=== PATIENT | female | born 1950 | race Caucasian/White ===

== ENCOUNTER 2017-09-24 09:58 | Emergency (ER) | payer OTHER, MEDICARE ==
[2017-09-24 10:23] VITALS: BP 118/68; PULSE 85; TEMP 98; BMI 22.6
[2017-09-24] MEDS ORDERED: DIPHTH,PERTUSS(ACELL),TET 0.5 ML DISP.SYRIN IM ONE (10:45)
[2017-09-24] MEDS ORDERED: ACETAMINOPHEN 325 MG TABLET (FP) ONE (10:47)
[2017-09-24] MEDS ORDERED: ACETAMINOPHEN 325 MG TABLET (FP) PO ONE (10:47)
--- NOTE | 2017-09-24 11:00 | PDOC ---
History of Present Illness <Frankie Wheeler - Last Filed: 09/24/17 11:34> - History of Present Illness Initial Comments: 09/24/17 11:02 "The patient is a 67 year old female (current smoker), with a significant PMH of COPD, multiple sclerosis (in remission), optic neuropathy who presents to the emergency department with s/p witnessed trip and fall just prior to arrival. The patient states she was walking to a when she misstepped and tripped over the curb falling forward and hitting her face on the ground. The patient denies any loss of consciousness and states she can recall events leading up to and after the fall. The patient denies any preceding chest pain, shortness of breath, dizziness, lightheadedness, nausea or blurry vision prior to falling. The patient states after falling a friend (Nurse) at the helped the patient and advised her to come to the ED for evaluation. The patient states she has some facial soreness from the fall and reports mild headache and right knee pain. The patient states she takes 81 mg of aspirin daily. She states she is unsure of her last tetanus shot. She denies neck or back pain. She denies any numbness, weakness or tingling. She denies any bowel or bladder incontinence. The patient denies chest pain, shortness of breath, and dizziness. Denies fever, chills, nausea, vomit, diarrhea and constipation. Social history: Current smoker. PCP: Dr. Juwan Jordan <Gualberto Israel - Last Filed: 09/24/17 12:04> - General Chief Complaint: Injury Stated Complaint: FACE INJURY Time Seen by Provider: 09/24/17 10:21 Past History <Frankie Wheeler - Last Filed: 09/24/17 11:34> - Past Medical History COPD: Yes GI Disorders: Yes (HIATAL HERNIA, NERD, GASTRITIS, COLON POLYP) Hypercholesterolemia: Yes Other medical history: MS - Immunization History Immunization Up to Date: No - Suicide/Smoking/Psychosocial Hx Smoking Status: Yes Smoking History: Current every day smoker Have you smoked in the past 12 months: Yes Number of Cigarettes Smoked Daily: 10 Information on smoking cessation initiated: No 'Breaking Loose' booklet given: 02/20/13 Hx Alcohol Use: No Drug/Substance Use Hx: No Substance Use Type: None Hx Substance Use Treatment: No <Gualberto Israel - Last Filed: 09/24/17 12:04> - Past Medical History Allergies/Adverse Reactions: Allergies Allergy/AdvReac Type Severity Reaction Status Date / Time No Known Allergies Allergy Verified 02/20/13 13:38 Home Medications: Ambulatory Orders Atorvastatin Ca [Lipitor] 10 mg PO HS #0 tablet 02/24/13 Aspirin Coated [Ecotrin -] 81 mg PO DAILY 09/27/15 Budesonide/Formeterol Fumarate [SYMBICORT 80/4.5mcg -] 1 inh PO BID 09/27/15 Cholecalciferol (Vitamin D3) [Vitamin D3] 1,000 unit PO DAILY 09/27/15 Ibuprofen [Advil -] 200 mg PO QID PRN 09/28/15 Review of Systems - Review of Systems Comments:: 09/24/17 11:02 "GENERAL/CONSTITUTIONAL: No fever or chills. No weakness. HEAD, EYES, EARS, NOSE AND THROAT: +Facial soreness. No change in vision. No ear pain or discharge. No sore throat. CARDIOVASCULAR: No chest pain or shortness of breath. RESPIRATORY: No cough, wheezing, or hemoptysis. GASTROINTESTINAL: No nausea, vomiting, diarrhea or constipation. GENITOURINARY: No dysuria, frequency, or change in urination. MUSCULOSKELETAL: No joint or muscle swelling or pain. No neck or back pain. SKIN: No rash NEUROLOGIC:+Headache. No vertigo, loss of consciousness, or change in strength/ sensation. ENDOCRINE: No increased thirst. No abnormal weight change. HEMATOLOGIC/LYMPHATIC: No anemia, easy bleeding, or history of blood clots. ALLERGIC/IMMUNOLOGIC: No hives or skin allergy. " <Gualberto Israel - Last Filed: 09/24/17 12:04> *Physical Exam - Vital Signs Last Vital Signs Temp Pulse Resp BP Pulse Ox 98 F 85 16 118/68 96 09/24/17 10:00 09/24/17 10:00 09/24/17 10:00 09/24/17 10:00 09/24/17 10:00 <Frankie Wheeler - Last Filed: 09/24/17 11:34> - Vital Signs Last Vital Signs Temp Pulse Resp BP Pulse Ox 98 F 85 16 118/68 96 09/24/17 10:00 09/24/17 10:00 09/24/17 10:00 09/24/17 10:00 09/24/17 10:00 - Physical Exam Comments: 09/24/17 11:00 "GENERAL: Awake, alert, and fully oriented, in no acute distress. HEAD: + abrasion to bridge of nose and forehead with R frontal hematoma, no lacerations EYES: PERRLA, EOMI, sclera anicteric, conjunctiva clear ENT: No septal hematoma, no blood in nares, Auricles normal inspection, hearing grossly normal, nares patent, oropharynx clear without lacerations. Moist mucosa NECK: Nontender, no stepoffs, Normal ROM, supple, no lymphadenopathy, JVD, or masses BACK: nontender, no stepoffs LUNGS: Breath sounds equal, clear to auscultation bilaterally. No wheezes, and no crackles HEART: Regular rate and rhythm, normal S1 and S2, no murmurs, rubs or gallops ABDOMEN: Soft, nontender, normoactive bowel sounds. No guarding, no rebound. No masses EXTREMITIES: +abrasion to R palm and R knee, Normal range of motion, no edema. No clubbing or cyanosis. No cords, erythema, or tenderness NEUROLOGICAL: Cranial nerves II through XII intact. 5/5 strength and sensation in all extremities, Normal speech, normal gait, normal cerebellar function SKIN: Warm, Dry, normal turgor, no rashes or lesions noted. <Gualberto Israel - Last Filed: 09/24/17 12:04> ED Treatment Course - RADIOLOGY Radiograph Interpretation: 09/24/17 11:34 EXAM#: TYPE/EXAM: RESULT: [id number] CT/FACIAL BONES CT W/O CONTRAST [id number] CT/HEAD CT WITHOUT CONTRAST INDICATION: Fall. Injury. TECHNIQUE: 1. Axial noncontrast head CT with coronal and sagittal reformations. 2. Axial noncontrast facial bone CT with coronal and sagittal reformations. COMPARISON: No prior head or facial bone CT. Correlation made to the 2008 MRI brain. FINDINGS: There is no acute intracranial hemorrhage or extra-axial collection. There is generalized, age- related cerebral volume loss with ex vacuo enlargement of the CSF spaces. There is no hydrocephalus. There is no compelling evidence of acute transcortical infarction at this time. There is no mass effect or midline shift. There is confluent nonspecific hypoattenuation in the periventricular white matter. There is hematoma and edema in the scalp soft tissues overlying the right frontal bone. The calvarium is intact. The paranasal sinuses and mastoid air cells are clear. There is age- indeterminate nondisplaced right nasal bone fracture. Otherwise, no evidence of acute fracture in the remaining facial bones. Retrobulbar fat is maintained within both orbits. Extensive streak artifact from dental hardware obscures the oral cavity. IMPRESSION: 1. No acute intracranial hemorrhage, mass effects, hydrocephalus or calvarial fracture. Hematoma and edema in the scalp soft tissues overlying the right frontal bone. 2. Nondisplaced right nasal bone fracture is age indeterminate. Please correlate clinically, with point tenderness. 3. Nonspecific hypoattenuation in the periventricular white matter may be attributed to microvascular ischemia. Other processes including demyelination are not excluded. Please correlate clinically, with medical history. Reported By: Lester Sykes DO - Medications Given in the ED: ED Medications Discontinued Medications Generic Name Dose Route Start Last Admin Trade Name Nasir PRN Reason Stop Dose Admin Acetaminophen 650 mg 09/24/17 10:47 09/24/17 10:55 Tylenol - PO 09/24/17 10:48 650 mg ONCE ONE Administration Diphtheria/Tetanus/Acell Pertussis 0.5 ml 09/24/17 10:45 09/24/17 10:55 Boostrix - IM 09/24/17 10:46 0.5 ml .ONCE ONE Administration <Frankie Wheeler - Last Filed: 09/24/17 11:34> - RADIOLOGY Radiology Studies Ordered: Category Date Time Status FACIAL BONES CT W/O CONTRAST [CT] Stat CT Scan 09/24/17 10:[address] WITHOUT CONTRAST [CT] Stat CT Scan 09/24/17 10:44 Ordered <Gualberto Israel - Last Filed: 09/24/17 12:04> Medical Decision Making - Medical Decision Making 09/24/17 10:49 67 F with facial injury after mechanical fall. Exam notable for abrasions to bridge of nose, forehead, R wrist, and R knee. Pt with no bony tenderness in wrist or knee to suggest acute fx. Will obtain CTs to r/o facial fx and ICH. Pt without any s/s syncope, is HD stable in ED. Witnessed by daughter tripping over a step. Will defer labs and EKG at this time. - CT head/facial bones - XR R wrist, R knee - Tylenol - Tdap 09/24/17 11:50 CT notable for nasal fx XR negative on my read Pt's wounds cleaned and dressed with bacitracin. Pt is well appearing, with normal vitals. Clinically stable for DC at this time. I discussed the physical exam findings, ancillary test results and final diagnoses with the patient. I answered all of the patient's questions. The patient was satisfied with the care received and felt comfortable with the discharge plan and treatment plan. The patient agrees to follow up with the primary care physician within 24-72 hours. <Gualberto Israel - Last Filed: 09/24/17 12:04> *DC/Admit/Observation/Transfer - Attestations Scribe Attestion: 09/24/17 11:15 Documentation prepared by Frankie Wheeler, acting as medical insurance clerk for Gualberto Israel MD. <Frankie Wheeler - Last Filed: 09/24/17 11:34> - Attestations Physician Attestion: 09/24/17 11:52 I, Dr. Gualberto Israel MD, attest that this document has been prepared under my direction and personally reviewed by me in its entirety. I further attest, that it accurately reflects all work, treatment, procedures and medical decision -making performed by me. <Gualberto Israel - Last Filed: 09/24/17 12:04> Diagnosis at time of Disposition: Nasal bone fracture - Discharge Dispostion Disposition: HOME - Referrals Referrals: Juwan Jordan MD [Primary Care Provider] - Danny Bernal MD [Staff Physician] - - Patient Instructions Printed Discharge Instructions: DI for Closed Head Injury Additional Instructions: Keep your wounds clean and dry at all times. You may rinse gently with soap and water to clean. Apply antibiotic ointment twice daily to prevent infection. You have a nasal bone fracture. Follow up with an ENT specialist within 1 week for further evaluation and treatment. Call the number provided to make an appointment. If you experience severe headache, vomiting, lethargy, or any other concerning symptoms, return to the ER immediately. Otherwise, follow up with your primary doctor within 1-2 weeks. - Post Discharge Activity
== END 2017-09-24 12:08 | disposition home or self-care (01) ==
LOC: JER 09:58
PROC: 3E0234Z Introduction of Serum, Toxoid and Vaccine into Muscle, Percutaneous Approach (ICD-10-PCS; principal; 2017-09-24)
DX: S02.2XXA Fracture of nasal bones, initial encounter for closed fracture (principal); S00.83XA Contusion of other part of head, initial encounter; W10.1XXA Fall (on)(from) sidewalk curb, initial encounter; Y93.01 Activity, walking, marching and hiking; Y92.480 Sidewalk as the place of occurrence of the external cause; Y99.8 Other external cause status; G35 Multiple sclerosis; J44.9 Chronic obstructive pulmonary disease, unspecified; Z87.19 Personal history of other diseases of the digestive system; Z79.82 Long term (current) use of aspirin
CPT/HCPCS: 70450-TC; 70486-TC; 73110-TC-RT-FY; 73562-TC-RT-FY; 90471; 90715; 99282-25

== ENCOUNTER 2018-11-05 13:09 | Emergency (ER) | payer OTHER, MEDICARE | END 2018-11-05 15:43 | disposition home or self-care (01) | LOC: FER 13:09 ==

== ENCOUNTER 2022-01-02 15:57 | Inpatient (IN) | payer OTHER, MEDICARE ==
[2022-01-02] MEDS ORDERED: VANCOMYCIN 1 GM in D5W (PRE-DOCKED) 1,000 MG/250 ML IVPB ONE (17:55)
[2022-01-02] MEDS ORDERED: VANCOMYCIN/WATER FOR INJ (PEG) 1,000 MG/200 ML BAG IVPB ONE (18:17)
[2022-01-02] MEDS ORDERED: FAMOTIDINE 20 MG/50 ML IVPB 20 MG/50 ML MG IVPB ONE ×3 (18:30→21:52)
[2022-01-02] MEDS ORDERED: methylPREDNISolone NA SUCC 125 MG/2 ML VIAL IVPB ONE (18:30)
[2022-01-02 18:32] LABS: BASO % 0.4 % (0-2.0); HEMATOCRIT 39.5 % (32.4-45.2); HEMOGLOBIN 13.3 GM/dL (10.7-15.3); LYMPH % 11.4 % (8-40); MCHC 33.6 g/dl (32.0-36.0); MEAN CELL VOLUME 86.3 fl (80-96); MEAN PLT VOLUME 7.8 fl (7.5-11.1); MONO % 12.5 % (3.8-10.2); NEUT % 74.7 % (42.8-82.8); PLATELET COUNT 416 10^3/uL (134-434); RBC 4.58 M/mm3 (3.60-5.2)
[2022-01-02 18:57] LABS: CALCIUM 9.6 mg/dL (8.5-10.1)
[2022-01-02 18:58] LABS: ALBUMIN 3.5 g/dl (3.4-5.0); BLOOD UREA NITROGEN 19.2 mg/dL (7-18)
[2022-01-02 19:01] LABS: CREATININE 0.6 mg/dL (0.55-1.3)
[2022-01-02 19:02] LABS: TOT PROT 7.6 g/dl (6.4-8.2)
[2022-01-02 19:03] LABS: BILIRUBIN,TOTAL 0.4 mg/dL (0.2-1)
[2022-01-02 19:24] LABS: MAGNESIUM 2.5 mg/dL (1.8-2.4)
[2022-01-02] MEDS ORDERED: ALBUTEROL SO4 HFA INHALER IH PRN (23:24)
[2022-01-03] MEDS: ATORVASTATIN CA 40 MG TABLET (FP) PO SCH ×2 (03:48→21:07)
[2022-01-03] MEDS: BUDESONIDE/FORMETEROL FUMARATE 80/4.5 mcg INHALER IH SCH ×3 (03:48→21:06)
[2022-01-03] MEDS ORDERED: LEVOTHYROXINE NA 50 MCG TABLET (FP) ONE (06:51)
[2022-01-03 07:28] LABS: HEMATOCRIT 38.3 % (32.4-45.2); HEMOGLOBIN 12.9 GM/dL (10.7-15.3); MCH 28.9 pg (25.7-33.7); MCHC 33.7 g/dl (32.0-36.0); MEAN CELL VOLUME 85.9 fl (80-96); MEAN PLT VOLUME 8.1 fl (7.5-11.1); PLATELET COUNT 434 10^3/uL (134-434); RBC 4.46 M/mm3 (3.60-5.2); RDW 13.8 % (11.6-15.6); WHITE BLOOD COUNT 13.3 K/mm3 (4.0-10.0)
[2022-01-03 07:44] LABS: CALCIUM 9.2 mg/dL (8.5-10.1)
[2022-01-03 07:45] LABS: ALBUMIN 3.2 g/dl (3.4-5.0); BLOOD UREA NITROGEN 14.5 mg/dL (7-18)
[2022-01-03 07:48] LABS: CREATININE 0.5 mg/dL (0.55-1.3)
[2022-01-03 07:49] LABS: BILIRUBIN,TOTAL 0.4 mg/dL (0.2-1)
[2022-01-03 07:50] LABS: TOT PROT 7.3 g/dl (6.4-8.2)
[2022-01-03 08:10] LABS: EPI CELLS 8 /uL (0-25.1); HYALINE CASTS 2 /uL (0-3.1); URINE APPEARANCE TURBID; URINE BACTERIA 6 /uL (0-1359); URINE BILIRUBIN NEGATIVE (NEGATIVE); URINE COLOR YELLOW; URINE GLUCOSE (UA) NEGATIVE (NEGATIVE); URINE KETONE TRACE (NEGATIVE); URINE LEUK ESTERASE 3+ (NEGATIVE); URINE NITRITE NEGATIVE (NEGATIVE); URINE PROTEIN 1+ (NEGATIVE); URINE RBC 36 /uL (0-23.9); URINE UROBILINOGEN 0.2 mg/dL (0.2-1.0); URINE WBC 3263 /uL (0-25.8)
[2022-01-03 08:56] LABS: ANISOCYTOSIS 0; HELMET CELLS 0; HOWELL-JOLLY BODIES 0; MACROCYTOSIS 0; OVALOCYTE 0; ROULEAU 0; SICKELED CELLS 0; TARGET CELLS 0; TEAR DROP CELLS 0; TOXIC GRANULATION 0
[2022-01-03] MEDS ORDERED: VANCOMYCIN 1,000 MG in DEXTROSE 5%-WATER - 250 ML IVPB SCH (09:45)
[2022-01-03] MEDS: LEVOTHYROXINE NA 50 MCG TABLET (FP) PO SCH (10:42)
[2022-01-03] MEDS: ASPIRIN COATED 81 MG TABLET.EC PO SCH (11:38)
[2022-01-03] MEDS: MULTIVITAMINS (DAILY MVI) TABLET (FP) PO SCH (11:38)
[2022-01-03 11:59] LABS: URIC ACID 4.5 mg/dL (2.6-7.2)
[2022-01-03] MEDS: CEFAZOLIN 1 GM in DEXTROSE 5%-WATER - 50 ML IVPB SCH ×2 (14:32→17:45)
[2022-01-03 15:03] VITALS: BMI 27.9
[2022-01-03] MEDS ORDERED: VANCOMYCIN/WATER FOR INJ (PEG) 1,000 MG/200 ML BAG IVPB SCH (19:00)
[2022-01-04] MEDS: CEFAZOLIN 1 GM in DEXTROSE 5%-WATER - 50 ML IVPB SCH ×3 (01:04→18:10)
[2022-01-04] MEDS: LEVOTHYROXINE NA 50 MCG TABLET (FP) PO SCH (06:08)
[2022-01-04] MEDS: MULTIVITAMINS (DAILY MVI) TABLET (FP) PO SCH (10:18)
[2022-01-04] MEDS: ASPIRIN COATED 81 MG TABLET.EC PO SCH (10:18)
[2022-01-04] MEDS: BUDESONIDE/FORMETEROL FUMARATE 80/4.5 mcg INHALER IH SCH ×2 (10:19→22:11)
[2022-01-04] MEDS: predniSONE 10 MG TABLET (UD) PO SCH (22:10)
[2022-01-04] MEDS: ATORVASTATIN CA 40 MG TABLET (FP) PO SCH (22:10)
[2022-01-04] MEDS: BACLOFEN 10 MG TABLET (FP) PO SCH (22:10)
[2022-01-05] MEDS: CEFAZOLIN 1 GM in DEXTROSE 5%-WATER - 50 ML IVPB SCH ×3 (01:14→17:42)
[2022-01-05] MEDS: LEVOTHYROXINE NA 50 MCG TABLET (FP) PO SCH (06:29)
[2022-01-05] MEDS: MULTIVITAMINS (DAILY MVI) TABLET (FP) PO SCH (09:56)
[2022-01-05] MEDS: ASPIRIN COATED 81 MG TABLET.EC PO SCH (09:56)
[2022-01-05] MEDS: predniSONE 10 MG TABLET (UD) PO SCH ×2 (09:56→23:47)
[2022-01-05] MEDS: BACLOFEN 10 MG TABLET (FP) PO SCH ×2 (09:56→23:48)
[2022-01-05] MEDS: BUDESONIDE/FORMETEROL FUMARATE 80/4.5 mcg INHALER IH SCH ×2 (09:56→23:50)
[2022-01-05] MEDS ORDERED: COLCHICINE 0.6 MG TAB PO ONE (12:00)
[2022-01-05] MEDS: ATORVASTATIN CA 40 MG TABLET (FP) PO SCH (23:48)
[2022-01-06] MEDS: CEFAZOLIN 1 GM in DEXTROSE 5%-WATER - 50 ML IVPB SCH ×3 (02:20→18:34)
[2022-01-06] MEDS: LEVOTHYROXINE NA 50 MCG TABLET (FP) PO SCH (06:42)
[2022-01-06 09:05] LABS: BASO % 0.4 % (0-2.0); EOS % 0.1 % (0-4.5); HEMATOCRIT 37.8 % (32.4-45.2); HEMOGLOBIN 12.7 GM/dL (10.7-15.3); LYMPH % 15.2 % (8-40); MCH 29.2 pg (25.7-33.7); MCHC 33.5 g/dl (32.0-36.0); MEAN CELL VOLUME 87.2 fl (80-96); MEAN PLT VOLUME 7.7 fl (7.5-11.1); MONO % 8.5 % (3.8-10.2); NEUT % 75.8 % (42.8-82.8); PLATELET COUNT 488 10^3/uL (134-434); RBC 4.33 M/mm3 (3.60-5.2); RDW 13.7 % (11.6-15.6)
[2022-01-06] MEDS: ASPIRIN COATED 81 MG TABLET.EC PO SCH (11:01)
[2022-01-06] MEDS: MULTIVITAMINS (DAILY MVI) TABLET (FP) PO SCH (11:01)
[2022-01-06] MEDS: BACLOFEN 10 MG TABLET (FP) PO SCH ×2 (11:01→21:37)
[2022-01-06] MEDS: COLCHICINE 0.6 MG CAP PO SCH (11:03)
[2022-01-06] MEDS: predniSONE 10 MG TABLET (UD) PO SCH ×2 (11:03→21:51)
[2022-01-06] MEDS: BUDESONIDE/FORMETEROL FUMARATE 80/4.5 mcg INHALER IH SCH ×2 (11:04→21:37)
[2022-01-06] MEDS: ENOXAPARIN NA (PORCINE) 40 MG/0.4 ML DISP.SYRIN SQ SCH (15:04)
[2022-01-06] MEDS: ATORVASTATIN CA 40 MG TABLET (FP) PO SCH (21:37)
[2022-01-07] MEDS: CEFAZOLIN 1 GM in DEXTROSE 5%-WATER - 50 ML IVPB SCH ×3 (02:45→18:42)
[2022-01-07] MEDS: LEVOTHYROXINE NA 50 MCG TABLET (FP) PO SCH (07:48)
[2022-01-07] MEDS: ENOXAPARIN NA (PORCINE) 40 MG/0.4 ML DISP.SYRIN SQ SCH (11:02)
[2022-01-07] MEDS: BACLOFEN 10 MG TABLET (FP) PO SCH ×2 (11:03→22:38)
[2022-01-07] MEDS: ASPIRIN COATED 81 MG TABLET.EC PO SCH (11:03)
[2022-01-07] MEDS: predniSONE 10 MG TABLET (UD) PO SCH ×2 (11:03→22:38)
[2022-01-07] MEDS: MULTIVITAMINS (DAILY MVI) TABLET (FP) PO SCH (11:07)
[2022-01-07] MEDS: BUDESONIDE/FORMETEROL FUMARATE 80/4.5 mcg INHALER IH SCH ×2 (11:07→22:38)
[2022-01-07] MEDS: COLCHICINE 0.6 MG CAP PO SCH (11:07)
[2022-01-07] MEDS: ATORVASTATIN CA 40 MG TABLET (FP) PO SCH (22:38)
[2022-01-08] MEDS: CEFAZOLIN 1 GM in DEXTROSE 5%-WATER - 50 ML IVPB SCH ×2 (03:04→09:57)
[2022-01-08] MEDS: LEVOTHYROXINE NA 50 MCG TABLET (FP) PO SCH (06:51)
[2022-01-08] MEDS: MULTIVITAMINS (DAILY MVI) TABLET (FP) PO SCH (09:56)
[2022-01-08] MEDS: ASPIRIN COATED 81 MG TABLET.EC PO SCH (09:57)
[2022-01-08] MEDS: predniSONE 10 MG TABLET (UD) PO SCH ×2 (09:57→21:39)
[2022-01-08] MEDS: BACLOFEN 10 MG TABLET (FP) PO SCH ×2 (09:57→21:39)
[2022-01-08] MEDS: ENOXAPARIN NA (PORCINE) 40 MG/0.4 ML DISP.SYRIN SQ SCH (09:57)
[2022-01-08] MEDS: COLCHICINE 0.6 MG CAP PO SCH (09:59)
[2022-01-08] MEDS: BUDESONIDE/FORMETEROL FUMARATE 80/4.5 mcg INHALER IH SCH ×2 (10:00→21:41)
[2022-01-08] MEDS: LACTOBACILLUS ACIDOPHILUS 1 TABLET PO SCH (12:07)
[2022-01-08] MEDS: CLINDAMYCIN 600MG PREMIX IVPB 600 MG/50 ML BAG IVPB SCH ×2 (12:07→17:23)
[2022-01-08] MEDS: ATORVASTATIN CA 40 MG TABLET (FP) PO SCH (21:39)
[2022-01-09] MEDS: CLINDAMYCIN 600MG PREMIX IVPB 600 MG/50 ML BAG IVPB SCH ×3 (01:40→17:15)
[2022-01-09] MEDS: LEVOTHYROXINE NA 50 MCG TABLET (FP) PO SCH (06:44)
[2022-01-09] MEDS: LACTOBACILLUS ACIDOPHILUS 1 TABLET PO SCH (09:35)
[2022-01-09] MEDS: BACLOFEN 10 MG TABLET (FP) PO SCH ×2 (09:37→22:08)
[2022-01-09] MEDS: ENOXAPARIN NA (PORCINE) 40 MG/0.4 ML DISP.SYRIN SQ SCH (09:37)
[2022-01-09] MEDS: ASPIRIN COATED 81 MG TABLET.EC PO SCH (09:37)
[2022-01-09] MEDS: predniSONE 10 MG TABLET (UD) PO SCH ×2 (09:37→22:08)
[2022-01-09] MEDS: MULTIVITAMINS (DAILY MVI) TABLET (FP) PO SCH (09:38)
[2022-01-09] MEDS: BUDESONIDE/FORMETEROL FUMARATE 80/4.5 mcg INHALER IH SCH ×2 (09:39→22:09)
[2022-01-09] MEDS: COLCHICINE 0.6 MG CAP PO SCH (10:19)
[2022-01-09 16:22] LABS: HEMATOCRIT 35.3 % (32.4-45.2); HEMOGLOBIN 11.9 GM/dL (10.7-15.3); MCH 28.8 pg (25.7-33.7); MCHC 33.8 g/dl (32.0-36.0); MEAN CELL VOLUME 85.1 fl (80-96); MEAN PLT VOLUME 7.4 fl (7.5-11.1); PLATELET COUNT 520 10^3/uL (134-434); RBC 4.14 M/mm3 (3.60-5.2); RDW 13.7 % (11.6-15.6); WHITE BLOOD COUNT 18.5 K/mm3 (4.0-10.0)
[2022-01-09 17:03] LABS: ALBUMIN 2.8 g/dl (3.4-5.0); BLOOD UREA NITROGEN 21.2 mg/dL (7-18); CALCIUM 8.9 mg/dL (8.5-10.1)
[2022-01-09 17:06] LABS: CREATININE 0.6 mg/dL (0.55-1.3)
[2022-01-09 17:08] LABS: BILIRUBIN,TOTAL 0.2 mg/dL (0.2-1); TOT PROT 6.9 g/dl (6.4-8.2)
[2022-01-09] MEDS: ATORVASTATIN CA 40 MG TABLET (FP) PO SCH (22:08)
[2022-01-10] MEDS: CLINDAMYCIN 600MG PREMIX IVPB 600 MG/50 ML BAG IVPB SCH ×2 (02:29→09:25)
[2022-01-10] MEDS: LEVOTHYROXINE NA 50 MCG TABLET (FP) PO SCH (06:21)
[2022-01-10 08:09] VITALS: BP 105/67; PULSE 85; RESP 18; TEMP 97.8
[2022-01-10] MEDS: LACTOBACILLUS ACIDOPHILUS 1 TABLET PO SCH (09:24)
[2022-01-10] MEDS: predniSONE 10 MG TABLET (UD) PO SCH (09:25)
[2022-01-10] MEDS: ENOXAPARIN NA (PORCINE) 40 MG/0.4 ML DISP.SYRIN SQ SCH (09:26)
[2022-01-10] MEDS: ASPIRIN COATED 81 MG TABLET.EC PO SCH (09:26)
[2022-01-10] MEDS: BACLOFEN 10 MG TABLET (FP) PO SCH (09:26)
[2022-01-10] MEDS: BUDESONIDE/FORMETEROL FUMARATE 80/4.5 mcg INHALER IH SCH (09:27)
[2022-01-10] MEDS: MULTIVITAMINS (DAILY MVI) TABLET (FP) PO SCH (09:27)
[2022-01-10] MEDS: COLCHICINE 0.6 MG CAP PO SCH (09:30)
== END 2022-01-10 15:24 | DRG 603 ==
LOC: JER 15:57 → JERBED 20:12 → J8W 01-03 08:24
PROVIDERS: ADMIT Internal Medicine; ATTEND Family Medicine
DX: L03.116 Cellulitis of left lower limb (principal); N39.0 Urinary tract infection, site not specified; G35 Multiple sclerosis; J44.9 Chronic obstructive pulmonary disease, unspecified; E78.5 Hyperlipidemia, unspecified; R29.898 Other symptoms and signs involving the musculoskeletal system; E03.9 Hypothyroidism, unspecified
CPT/HCPCS: 36415; 70450-TC; 70553-TC; 71045-TC-FY; 72148-TC; 73630-TC-LT; 73718-TC-LT; 80053; 81003; 83735; 84443; 84550; 85025; 85027; 86140; 87086; 93005; 93010; 93971-TC; 97116-GP; 97161-GP; 99285-25; C9803-CS; J0475; U0003; U0005

== ENCOUNTER 2023-04-23 14:41 | Inpatient (IN) | payer OTHER, MEDICARE ==
[2023-04-23 15:12] VITALS: BMI 28.8
[2023-04-23] MEDS ORDERED: morphine CARPU-JECT 4 MG/1 ML DISP.SYRIN IVPUSH ONE (16:05)
[2023-04-23] MEDS ORDERED: morphine SULFATE 4 MG/ML VIAL ONE (17:28)
[2023-04-23 17:58] LABS: BASO % 0.5 % (0-2.0); EOS % 0.2 % (0-4.5); HEMATOCRIT 34.8 % (32.4-45.2); HEMOGLOBIN 11.5 GM/dL (10.7-15.3); LYMPH % 8.8 % (8-40); MCH 26.6 pg (25.7-33.7); MCHC 33.1 g/dl (32.0-36.0); MEAN CELL VOLUME 80.5 fl (80-96); NEUT % 82.5 % (42.8-82.8); PLATELET COUNT 480 10^3/uL (134-434); RBC 4.32 M/mm3 (3.60-5.2); RDW 15.4 % (11.6-15.6); WHITE BLOOD COUNT 18.7 K/mm3 (4.0-10.0)
[2023-04-23 18:06] LABS: INR 1.17 (0.83-1.09); PROTHROMBIN TIME (PATIENT) 13.6 SEC (9.7-13.0)
[2023-04-23 18:09] LABS: ACTIVATED PTT 28.4 SECONDS (25.2-36.5)
[2023-04-23 18:21] LABS: POTASSIUM 4.3 mmol/L (3.5-5.1)
[2023-04-23 18:24] LABS: ALBUMIN 2.8 g/dl (3.4-5.0); BLOOD UREA NITROGEN 11.7 mg/dL (7-18); CALCIUM 8.8 mg/dL (8.5-10.1)
[2023-04-23 18:27] LABS: CREATININE 0.5 mg/dL (0.55-1.3)
[2023-04-23 18:29] LABS: BILIRUBIN,TOTAL 0.4 mg/dL (0.2-1); TOT PROT 6.9 g/dl (6.4-8.2)
[2023-04-23] MEDS ORDERED: ALBUTEROL SO4 HFA INHALER IH PRN (19:40)
[2023-04-23] MEDS ORDERED: ATORVASTATIN CA 40 MG TABLET (FP) ONE (21:33)
[2023-04-23] MEDS ORDERED: ALBUTEROL SO4 2.5/IPRATROPIUM 0.5 INH SOL 3 ML VIAL.NEB. NEB ONE (21:33)
[2023-04-23] MEDS ORDERED: ACETAMINOPHEN 500 MG TABLET (FP) ONE (21:35)
[2023-04-23] MEDS: ALBUTEROL SO4 2.5/IPRATROPIUM 0.5 INH SOL 3 ML VIAL.NEB. NEB SCH (21:41)
[2023-04-23] MEDS: ACETAMINOPHEN 500 MG TABLET (FP) PO SCH (21:42)
[2023-04-23] MEDS ORDERED: ATORVASTATIN CA 40 MG TABLET (FP) PO SCH (22:00)
[2023-04-24 02:36] LABS: EPI CELLS 11 /uL (0-25.1); HYALINE CASTS 0 /uL (0-3.1); PH,URINE 5.5 (5.0-8.0); URINE APPEARANCE CLOUDY; URINE BACTERIA >9,000 /uL (0-1359); URINE BILIRUBIN NEGATIVE (NEGATIVE); URINE COLOR YELLOW; URINE GLUCOSE (UA) NEGATIVE (NEGATIVE); URINE KETONE TRACE (NEGATIVE); URINE LEUK ESTERASE 3+ (NEGATIVE); URINE NITRITE POSITIVE (NEGATIVE); URINE PROTEIN 1+ (NEGATIVE); URINE RBC 33 /uL (0-23.9); URINE WBC 3847 /uL (0-25.8)
[2023-04-24] MEDS: ACETAMINOPHEN 500 MG TABLET (FP) PO SCH ×3 (06:22→22:15)
[2023-04-24] MEDS ORDERED: LEVOTHYROXINE NA 50 MCG TABLET (FP) PO SCH (07:00)
[2023-04-24] MEDS ORDERED: LEVOTHYROXINE NA 75 MCG TABLET (FP) PO SCH (07:00)
[2023-04-24] MEDS: ALBUTEROL SO4 2.5/IPRATROPIUM 0.5 INH SOL 3 ML VIAL.NEB. NEB SCH ×3 (07:45→15:15)
[2023-04-24 09:35] LABS: HEMATOCRIT 35.5 % (32.4-45.2); HEMOGLOBIN 11.2 GM/dL (10.7-15.3); MCH 25.8 pg (25.7-33.7); MCHC 31.4 g/dl (32.0-36.0); MEAN CELL VOLUME 82.3 fl (80-96); MEAN PLT VOLUME 7.5 fl (7.5-11.1); PLATELET COUNT 507 10^3/uL (134-434); RBC 4.32 M/mm3 (3.60-5.2); RDW 15.6 % (11.6-15.6); WHITE BLOOD COUNT 14.5 K/mm3 (4.0-10.0)
[2023-04-24 09:59] LABS: POTASSIUM 5.2 mmol/L (3.5-5.1)
[2023-04-24 10:15] LABS: CALCIUM 9.3 mg/dL (8.5-10.1)
[2023-04-24 10:16] LABS: BLOOD UREA NITROGEN 13.9 mg/dL (7-18)
[2023-04-24 10:20] LABS: CREATININE 0.5 mg/dL (0.55-1.3)
[2023-04-24] MEDS ORDERED: BUPIVACAINE HCL/PF 0.5% (5MG/ML) 10 ML VIAL ONE (14:46)
[2023-04-24] MEDS ORDERED: PROPOFOL 80 ML ONE (14:47)
[2023-04-24] MEDS ORDERED: FENTANYL CITRATE/PF 50 MCG/ML VIAL ONE (14:47)
[2023-04-24] MEDS ORDERED: PROMETHAZINE HCL 25 MG/1 ML VIAL IVPB PRN (15:08)
[2023-04-24] MEDS ORDERED: ONDANSETRON 4 MG/2 ML VIAL IVPUSH PRN (15:08)
[2023-04-24] MEDS ORDERED: LACTATED RINGERS SOLUTION 1,000 ML IV SCH ×2 (15:15→19:15)
[2023-04-24] MEDS ORDERED: MIDAZOLAM HCL 2 MG/2 ML SINGLE DOSE VIAL ONE ×2 (15:52→16:59)
[2023-04-24] MEDS ORDERED: ceFAZolin SODIUM 1 GM VIAL IVPB ONE (16:17)
[2023-04-24] MEDS ORDERED: ACETAMINOPHEN 1000 MG/100 ML BAG IVPB ONE ×2 (19:02→19:15)
[2023-04-24] MEDS ORDERED: KETOROLAC TROMETHAMINE 30 MG/1 ML VIAL IVPUSH ONE ×2 (19:03→19:10)
[2023-04-24] MEDS ORDERED: ACETAMINOPHEN INJECTION 100 ML IVPB ONE (19:09)
[2023-04-24] MEDS ORDERED: KETOROLAC TROMETHAMINE 30 MG/1 ML VIAL ONE (19:10)
[2023-04-24] MEDS ORDERED: ALBUTEROL SO4 HFA INHALER IH PRN (20:19)
[2023-04-24] MEDS: DOCUSATE SODIUM 100 MG CAPSULE (FP) PO SCH (22:16)
[2023-04-24] MEDS: ATORVASTATIN CA 40 MG TABLET (FP) PO SCH (22:16)
[2023-04-25] MEDS ORDERED: CEFAZOLIN 1 GM in DEXTROSE 5%-WATER - 50 ML IVPB SCH (02:00)
[2023-04-25] MEDS: CEFAZOLIN 1 GM in DEXTROSE 5%-WATER - 50 ML IVPB SCH ×3 (02:04→18:08)
[2023-04-25] MEDS: ACETAMINOPHEN 500 MG TABLET (FP) PO SCH ×3 (06:10→22:01)
[2023-04-25] MEDS: DOCUSATE SODIUM 100 MG CAPSULE (FP) PO SCH ×3 (06:11→22:02)
[2023-04-25] MEDS: LEVOTHYROXINE NA 50 MCG TABLET (FP) PO SCH (06:52)
[2023-04-25 06:54] LABS: POTASSIUM 4.5 mmol/L (3.5-5.1)
[2023-04-25 06:59] LABS: BLOOD UREA NITROGEN 19.1 mg/dL (7-18); CALCIUM 8.5 mg/dL (8.5-10.1)
[2023-04-25 07:00] LABS: ALBUMIN 2.3 g/dl (3.4-5.0)
[2023-04-25 07:01] LABS: BASO % 0.1 % (0-2.0); HEMATOCRIT 28.9 % (32.4-45.2); HEMOGLOBIN 9.4 GM/dL (10.7-15.3); LYMPH % 6.7 % (8-40); MCH 26.6 pg (25.7-33.7); MCHC 32.6 g/dl (32.0-36.0); MEAN CELL VOLUME 81.5 fl (80-96); MEAN PLT VOLUME 7.5 fl (7.5-11.1); MONO % 6.3 % (3.8-10.2); NEUT % 86.9 % (42.8-82.8); PLATELET COUNT 442 10^3/uL (134-434); RBC 3.54 M/mm3 (3.60-5.2); RDW 15.5 % (11.6-15.6); WHITE BLOOD COUNT 16.1 K/mm3 (4.0-10.0)
[2023-04-25 07:04] LABS: CREATININE 0.5 mg/dL (0.55-1.3)
[2023-04-25 07:05] LABS: BILIRUBIN,TOTAL 0.3 mg/dL (0.2-1); TOT PROT 5.8 g/dl (6.4-8.2)
[2023-04-25] MEDS ORDERED: ALBUTEROL SO4 2.5/IPRATROPIUM 0.5 INH SOL 3 ML VIAL.NEB. NEB SCH (08:00)
[2023-04-25] MEDS: ENOXAPARIN NA (PORCINE) 40 MG/0.4 ML DISP.SYRIN SQ SCH (10:07)
[2023-04-25] MEDS: CHOLECALCIFEROL (VIT D3) 1,000 UNIT (25 MCG) TABLET PO SCH (10:08)
[2023-04-25] MEDS ORDERED: ALBUTEROL SO4 0.083% IH SOL 2.5 MG/3 ML VIAL.NEB. NEB PRN (11:28)
[2023-04-25] MEDS: FLUTICASONE/UMECLIDIN/VILANTER(100-62.5-25 TRELEGY ELLIPTA) INAHLER IH SCH (12:08)
[2023-04-25] MEDS: oxyCODONE HCL 5 MG TABLET PO PRN ×2 (12:58→18:17)
[2023-04-25] MEDS: ACETAMINOPHEN 325 MG TABLET (FP) PO PRN (18:17)
[2023-04-25] MEDS: ALBUTEROL SO4 2.5/IPRATROPIUM 0.5 INH SOL 3 ML VIAL.NEB. NEB SCH (19:49)
[2023-04-25] MEDS: ATORVASTATIN CA 40 MG TABLET (FP) PO SCH (22:02)
[2023-04-26] MEDS: ACETAMINOPHEN 500 MG TABLET (FP) PO SCH ×3 (05:33→21:01)
[2023-04-26] MEDS: DOCUSATE SODIUM 100 MG CAPSULE (FP) PO SCH ×3 (05:34→21:02)
[2023-04-26] MEDS: LEVOTHYROXINE NA 50 MCG TABLET (FP) PO SCH (06:23)
[2023-04-26] MEDS ORDERED: CEFAZOLIN SODIUM 2 GM in DEXTROSE 5%-WATER 100 ML IVPB SCH (08:15)
[2023-04-26 08:23] LABS: HEMATOCRIT 25.6 % (32.4-45.2); HEMOGLOBIN 8.4 GM/dL (10.7-15.3); MCH 26.7 pg (25.7-33.7); MCHC 32.7 g/dl (32.0-36.0); MEAN CELL VOLUME 81.8 fl (80-96); MEAN PLT VOLUME 7.5 fl (7.5-11.1); PLATELET COUNT 418 10^3/uL (134-434); RBC 3.13 M/mm3 (3.60-5.2); RDW 15.5 % (11.6-15.6); WHITE BLOOD COUNT 13.3 K/mm3 (4.0-10.0)
[2023-04-26 08:28] LABS: POTASSIUM 4.2 mmol/L (3.5-5.1)
[2023-04-26 08:31] LABS: BLOOD UREA NITROGEN 13.7 mg/dL (7-18)
[2023-04-26 08:34] LABS: CREATININE 0.4 mg/dL (0.55-1.3)
[2023-04-26] MEDS: CEFTRIAXONE 1 GM in DEXTROSE 5%-WATER - 50 ML IVPB SCH (10:16)
[2023-04-26] MEDS: ENOXAPARIN NA (PORCINE) 40 MG/0.4 ML DISP.SYRIN SQ SCH (11:14)
[2023-04-26] MEDS: oxyCODONE HCL 5 MG TABLET PO PRN (11:15)
[2023-04-26] MEDS: ACETAMINOPHEN 325 MG TABLET (FP) PO PRN (11:16)
[2023-04-26] MEDS: CHOLECALCIFEROL (VIT D3) 1,000 UNIT (25 MCG) TABLET PO SCH (11:16)
[2023-04-26] MEDS: FLUTICASONE/UMECLIDIN/VILANTER(100-62.5-25 TRELEGY ELLIPTA) INAHLER IH SCH (11:17)
[2023-04-26] MEDS: ATORVASTATIN CA 40 MG TABLET (FP) PO SCH (21:02)
[2023-04-27] MEDS: oxyCODONE HCL 5 MG TABLET PO PRN ×2 (02:09→20:23)
[2023-04-27] MEDS: ACETAMINOPHEN 500 MG TABLET (FP) PO SCH ×3 (05:45→22:46)
[2023-04-27] MEDS: DOCUSATE SODIUM 100 MG CAPSULE (FP) PO SCH ×3 (05:46→22:47)
[2023-04-27] MEDS: LEVOTHYROXINE NA 50 MCG TABLET (FP) PO SCH (07:01)
[2023-04-27 08:13] LABS: RETICULOCYTES 2.14 % (0.5-1.5)
[2023-04-27] MEDS: CEFTRIAXONE 1 GM in DEXTROSE 5%-WATER - 50 ML IVPB SCH (09:09)
[2023-04-27] MEDS: CHOLECALCIFEROL (VIT D3) 1,000 UNIT (25 MCG) TABLET PO SCH (09:10)
[2023-04-27] MEDS: ENOXAPARIN NA (PORCINE) 40 MG/0.4 ML DISP.SYRIN SQ SCH (09:10)
[2023-04-27] MEDS: FLUTICASONE/UMECLIDIN/VILANTER(100-62.5-25 TRELEGY ELLIPTA) INAHLER IH SCH (09:10)
[2023-04-27 12:07] LABS: BASO % 1.2 % (0-2.0); EOS % 5.7 % (0-4.5); HEMATOCRIT 26.6 % (32.4-45.2); HEMOGLOBIN 8.5 GM/dL (10.7-15.3); LYMPH % 14.4 % (8-40); MCH 26.4 pg (25.7-33.7); MCHC 32.1 g/dl (32.0-36.0); MEAN CELL VOLUME 82.4 fl (80-96); MEAN PLT VOLUME 7.4 fl (7.5-11.1); MONO % 10.7 % (3.8-10.2); PLATELET COUNT 460 10^3/uL (134-434); RBC 3.22 M/mm3 (3.60-5.2); RDW 15.9 % (11.6-15.6); WHITE BLOOD COUNT 13.1 K/mm3 (4.0-10.0)
[2023-04-27] MEDS ORDERED: IRON SUCROSE INJECTION 200 MG in SODIUM CHLORIDE 90 ML IVPB ONE (13:00)
[2023-04-27] MEDS: ATORVASTATIN CA 40 MG TABLET (FP) PO SCH (22:47)
[2023-04-28] MEDS: LEVOTHYROXINE NA 50 MCG TABLET (FP) PO SCH (06:16)
[2023-04-28] MEDS: ACETAMINOPHEN 500 MG TABLET (FP) PO SCH ×3 (06:17→22:39)
[2023-04-28] MEDS: DOCUSATE SODIUM 100 MG CAPSULE (FP) PO SCH ×3 (06:17→22:41)
[2023-04-28 06:41] LABS: BASO % 0.8 % (0-2.0); EOS % 5.4 % (0-4.5); HEMATOCRIT 25.9 % (32.4-45.2); HEMOGLOBIN 8.5 GM/dL (10.7-15.3); LYMPH % 16.1 % (8-40); MCH 26.6 pg (25.7-33.7); MCHC 32.7 g/dl (32.0-36.0); MEAN CELL VOLUME 81.3 fl (80-96); MEAN PLT VOLUME 6.7 fl (7.5-11.1); MONO % 11.1 % (3.8-10.2); NEUT % 66.6 % (42.8-82.8); PLATELET COUNT 473 10^3/uL (134-434); RBC 3.18 M/mm3 (3.60-5.2); RDW 15.3 % (11.6-15.6); WHITE BLOOD COUNT 12.3 K/mm3 (4.0-10.0)
[2023-04-28] MEDS ORDERED: IRON SUCROSE INJECTION 200 MG in SODIUM CHLORIDE 90 ML IVPB ONE (07:45)
[2023-04-28] MEDS: CEFTRIAXONE 1 GM in DEXTROSE 5%-WATER - 50 ML IVPB SCH (09:06)
[2023-04-28] MEDS: CHOLECALCIFEROL (VIT D3) 1,000 UNIT (25 MCG) TABLET PO SCH (09:06)
[2023-04-28] MEDS: ENOXAPARIN NA (PORCINE) 40 MG/0.4 ML DISP.SYRIN SQ SCH (09:07)
[2023-04-28] MEDS: POLYETHYLENE GLYCOL (HEALTHYLAX) 3350 17 GM PACKET PO SCH ×2 (10:04→22:39)
[2023-04-28] MEDS: FLUTICASONE/UMECLIDIN/VILANTER(100-62.5-25 TRELEGY ELLIPTA) INAHLER IH SCH (10:12)
[2023-04-28] MEDS: ATORVASTATIN CA 40 MG TABLET (FP) PO SCH (22:39)
[2023-04-29] MEDS: ACETAMINOPHEN 500 MG TABLET (FP) PO SCH ×3 (06:18→21:47)
[2023-04-29] MEDS: DOCUSATE SODIUM 100 MG CAPSULE (FP) PO SCH ×3 (06:18→21:47)
[2023-04-29] MEDS: LEVOTHYROXINE NA 50 MCG TABLET (FP) PO SCH (06:18)
[2023-04-29] MEDS: CHOLECALCIFEROL (VIT D3) 5000 UNITS (125 MCG) CAP PO SCH (09:27)
[2023-04-29] MEDS: CEFTRIAXONE 1 GM in DEXTROSE 5%-WATER - 50 ML IVPB SCH (09:27)
[2023-04-29] MEDS: POLYETHYLENE GLYCOL (HEALTHYLAX) 3350 17 GM PACKET PO SCH ×2 (09:27→21:48)
[2023-04-29] MEDS: ENOXAPARIN NA (PORCINE) 40 MG/0.4 ML DISP.SYRIN SQ SCH (09:27)
[2023-04-29] MEDS: FLUTICASONE/UMECLIDIN/VILANTER(100-62.5-25 TRELEGY ELLIPTA) INAHLER IH SCH (09:28)
[2023-04-29] MEDS: ATORVASTATIN CA 40 MG TABLET (FP) PO SCH (21:47)
[2023-04-30] MEDS: ACETAMINOPHEN 500 MG TABLET (FP) PO SCH ×3 (05:41→21:40)
[2023-04-30] MEDS: DOCUSATE SODIUM 100 MG CAPSULE (FP) PO SCH ×3 (05:42→21:39)
[2023-04-30] MEDS: LEVOTHYROXINE NA 50 MCG TABLET (FP) PO SCH (06:15)
[2023-04-30] MEDS ORDERED: IRON SUCROSE INJECTION 200 MG in SODIUM CHLORIDE 90 ML IVPB ONE (09:00)
[2023-04-30] MEDS: CEFTRIAXONE 1 GM in DEXTROSE 5%-WATER - 50 ML IVPB SCH (10:11)
[2023-04-30] MEDS: FLUTICASONE/UMECLIDIN/VILANTER(100-62.5-25 TRELEGY ELLIPTA) INAHLER IH SCH (10:13)
[2023-04-30] MEDS: ENOXAPARIN NA (PORCINE) 40 MG/0.4 ML DISP.SYRIN SQ SCH (10:13)
[2023-04-30] MEDS: POLYETHYLENE GLYCOL (HEALTHYLAX) 3350 17 GM PACKET PO SCH ×3 (10:13→23:13)
[2023-04-30] MEDS: CHOLECALCIFEROL (VIT D3) 5000 UNITS (125 MCG) CAP PO SCH (10:13)
[2023-04-30] MEDS: ATORVASTATIN CA 40 MG TABLET (FP) PO SCH (21:39)
[2023-05-01] MEDS: ACETAMINOPHEN 500 MG TABLET (FP) PO SCH ×3 (05:49→21:38)
[2023-05-01] MEDS: DOCUSATE SODIUM 100 MG CAPSULE (FP) PO SCH ×3 (05:50→21:38)
[2023-05-01] MEDS: LEVOTHYROXINE NA 50 MCG TABLET (FP) PO SCH (06:05)
[2023-05-01 07:47] LABS: HEMATOCRIT 26.5 % (32.4-45.2); HEMOGLOBIN 8.8 GM/dL (10.7-15.3); MCH 27.1 pg (25.7-33.7); MCHC 33.2 g/dl (32.0-36.0); MEAN CELL VOLUME 81.6 fl (80-96); MEAN PLT VOLUME 6.7 fl (7.5-11.1); PLATELET COUNT 593 10^3/uL (134-434); RBC 3.24 M/mm3 (3.60-5.2); RDW 16.1 % (11.6-15.6); WHITE BLOOD COUNT 15.3 K/mm3 (4.0-10.0)
[2023-05-01 08:10] LABS: POTASSIUM 4.2 mmol/L (3.5-5.1)
[2023-05-01 08:22] LABS: BLOOD UREA NITROGEN 10.8 mg/dL (7-18); CALCIUM 8.4 mg/dL (8.5-10.1)
[2023-05-01 08:23] LABS: ALBUMIN 2.2 g/dl (3.4-5.0)
[2023-05-01 08:25] LABS: CREATININE 0.3 mg/dL (0.55-1.3)
[2023-05-01 08:26] LABS: BILIRUBIN,TOTAL 0.7 mg/dL (0.2-1); TOT PROT 5.7 g/dl (6.4-8.2)
[2023-05-01 09:27] LABS: ANISOCYTOSIS 2+; MACROCYTOSIS 0; OVALOCYTE 2+; TEAR DROP CELLS 2+
[2023-05-01] MEDS ORDERED: IRON SUCROSE INJECTION 200 MG in SODIUM CHLORIDE 90 ML IVPB ONE (11:00)
[2023-05-01] MEDS: ENOXAPARIN NA (PORCINE) 40 MG/0.4 ML DISP.SYRIN SQ SCH (12:04)
[2023-05-01] MEDS: FLUTICASONE/UMECLIDIN/VILANTER(100-62.5-25 TRELEGY ELLIPTA) INAHLER IH SCH (12:04)
[2023-05-01] MEDS: CEFTRIAXONE 1 GM in DEXTROSE 5%-WATER - 50 ML IVPB SCH (12:04)
[2023-05-01] MEDS: POLYETHYLENE GLYCOL (HEALTHYLAX) 3350 17 GM PACKET PO SCH ×2 (12:04→21:38)
[2023-05-01] MEDS: CHOLECALCIFEROL (VIT D3) 5000 UNITS (125 MCG) CAP PO SCH (12:05)
[2023-05-01] MEDS ORDERED: ALBUTEROL SO4 HFA INHALER IH PRN (19:38)
[2023-05-01] MEDS ORDERED: ACETAMINOPHEN 325 MG TABLET (FP) PO PRN (19:38)
[2023-05-01] MEDS: ATORVASTATIN CA 20 MG TABLET (FP) PO SCH (21:38)
[2023-05-02] MEDS: ACETAMINOPHEN 500 MG TABLET (FP) PO SCH ×3 (06:24→21:48)
[2023-05-02] MEDS: DOCUSATE SODIUM 100 MG CAPSULE (FP) PO SCH ×3 (06:24→21:49)
[2023-05-02] MEDS: LEVOTHYROXINE NA 50 MCG TABLET (FP) PO SCH (06:24)
[2023-05-02] MEDS: POLYETHYLENE GLYCOL (HEALTHYLAX) 3350 17 GM PACKET PO SCH ×2 (10:56→21:50)
[2023-05-02] MEDS: ENOXAPARIN NA (PORCINE) 40 MG/0.4 ML DISP.SYRIN SQ SCH (10:56)
[2023-05-02] MEDS: CHOLECALCIFEROL (VIT D3) 5000 UNITS (125 MCG) CAP PO SCH (10:56)
[2023-05-02] MEDS: CEFTRIAXONE 1 GM in DEXTROSE 5%-WATER - 50 ML IVPB SCH (11:00)
[2023-05-02] MEDS: FLUTICASONE/UMECLIDIN/VILANTER(100-62.5-25 TRELEGY ELLIPTA) INAHLER IH SCH (11:00)
[2023-05-02] MEDS ORDERED: FENTANYL CITRATE/PF 50 MCG/ML VIAL ONE (12:10)
[2023-05-02] MEDS ORDERED: SODIUM CHLORIDE 500 ML IV ONE (12:45)
[2023-05-02] MEDS ORDERED: FENTANYL CITRATE/PF 50 MCG/ML VIAL IVPUSH ONE (12:55)
[2023-05-02] MEDS: ATORVASTATIN CA 20 MG TABLET (FP) PO SCH (21:49)
[2023-05-03] MEDS: DOCUSATE SODIUM 100 MG CAPSULE (FP) PO SCH ×3 (06:06→21:24)
[2023-05-03] MEDS: ACETAMINOPHEN 500 MG TABLET (FP) PO SCH ×3 (06:06→21:23)
[2023-05-03] MEDS: LEVOTHYROXINE NA 50 MCG TABLET (FP) PO SCH (06:32)
[2023-05-03] MEDS: ALBUTEROL SO4 0.083% IH SOL 2.5 MG/3 ML VIAL.NEB. NEB PRN ×2 (10:25→20:26)
[2023-05-03] MEDS: CHOLECALCIFEROL (VIT D3) 5000 UNITS (125 MCG) CAP PO SCH (10:31)
[2023-05-03] MEDS: ENOXAPARIN NA (PORCINE) 40 MG/0.4 ML DISP.SYRIN SQ SCH (10:31)
[2023-05-03] MEDS: CEFTRIAXONE 1 GM in DEXTROSE 5%-WATER - 50 ML IVPB SCH (10:32)
[2023-05-03] MEDS: POLYETHYLENE GLYCOL (HEALTHYLAX) 3350 17 GM PACKET PO SCH ×2 (10:33→21:24)
[2023-05-03] MEDS: FLUTICASONE/UMECLIDIN/VILANTER(100-62.5-25 TRELEGY ELLIPTA) INAHLER IH SCH (10:33)
[2023-05-03] MEDS: ATORVASTATIN CA 20 MG TABLET (FP) PO SCH (21:24)
[2023-05-04] MEDS: ACETAMINOPHEN 500 MG TABLET (FP) PO SCH ×3 (06:17→21:48)
[2023-05-04] MEDS: LEVOTHYROXINE NA 50 MCG TABLET (FP) PO SCH (06:17)
[2023-05-04] MEDS: DOCUSATE SODIUM 100 MG CAPSULE (FP) PO SCH ×3 (06:18→21:48)
[2023-05-04] MEDS: POLYETHYLENE GLYCOL (HEALTHYLAX) 3350 17 GM PACKET PO SCH ×2 (09:21→21:51)
[2023-05-04] MEDS: CHOLECALCIFEROL (VIT D3) 5000 UNITS (125 MCG) CAP PO SCH (09:21)
[2023-05-04] MEDS: ENOXAPARIN NA (PORCINE) 40 MG/0.4 ML DISP.SYRIN SQ SCH (09:21)
[2023-05-04] MEDS: FLUTICASONE/UMECLIDIN/VILANTER(100-62.5-25 TRELEGY ELLIPTA) INAHLER IH SCH (09:24)
[2023-05-04] MEDS: ALBUTEROL SO4 0.083% IH SOL 2.5 MG/3 ML VIAL.NEB. NEB PRN (21:07)
[2023-05-04] MEDS: ATORVASTATIN CA 20 MG TABLET (FP) PO SCH (21:49)
[2023-05-05] MEDS: ACETAMINOPHEN 500 MG TABLET (FP) PO SCH ×3 (06:18→22:24)
[2023-05-05] MEDS: LEVOTHYROXINE NA 50 MCG TABLET (FP) PO SCH (06:18)
[2023-05-05] MEDS: DOCUSATE SODIUM 100 MG CAPSULE (FP) PO SCH ×3 (06:18→22:25)
[2023-05-05 08:55] LABS: HEMATOCRIT 29.5 % (32.4-45.2); HEMOGLOBIN 9.8 GM/dL (10.7-15.3); MCH 27.9 pg (25.7-33.7); MCHC 33.2 g/dl (32.0-36.0); MEAN CELL VOLUME 83.9 fl (80-96); MEAN PLT VOLUME 6.6 fl (7.5-11.1); PLATELET COUNT 639 10^3/uL (134-434); RBC 3.52 M/mm3 (3.60-5.2); RDW 17.4 % (11.6-15.6)
[2023-05-05 09:12] LABS: POTASSIUM 4.1 mmol/L (3.5-5.1)
[2023-05-05] MEDS: CHOLECALCIFEROL (VIT D3) 5000 UNITS (125 MCG) CAP PO SCH (09:15)
[2023-05-05] MEDS: POLYETHYLENE GLYCOL (HEALTHYLAX) 3350 17 GM PACKET PO SCH ×2 (09:15→22:25)
[2023-05-05] MEDS: ENOXAPARIN NA (PORCINE) 40 MG/0.4 ML DISP.SYRIN SQ SCH (09:15)
[2023-05-05 09:17] LABS: ALBUMIN 2.5 g/dl (3.4-5.0); BLOOD UREA NITROGEN 11.3 mg/dL (7-18)
[2023-05-05] MEDS: FLUTICASONE/UMECLIDIN/VILANTER(100-62.5-25 TRELEGY ELLIPTA) INAHLER IH SCH (09:18)
[2023-05-05 09:20] LABS: CREATININE 0.4 mg/dL (0.55-1.3)
[2023-05-05 09:22] LABS: BILIRUBIN,TOTAL 0.8 mg/dL (0.2-1); TOT PROT 6.3 g/dl (6.4-8.2)
[2023-05-05 09:50] LABS: ANISOCYTOSIS 3+; MACROCYTOSIS 0
[2023-05-05] MEDS ORDERED: DIPHENHYDRAMINE HCL 25 MG/10 ML CUP PO PRN (12:39)
[2023-05-05] MEDS: ALBUTEROL SO4 0.083% IH SOL 2.5 MG/3 ML VIAL.NEB. NEB PRN (21:10)
[2023-05-05] MEDS: ATORVASTATIN CA 20 MG TABLET (FP) PO SCH (22:24)
[2023-05-06] MEDS: ACETAMINOPHEN 500 MG TABLET (FP) PO SCH (06:48)
[2023-05-06] MEDS: LEVOTHYROXINE NA 50 MCG TABLET (FP) PO SCH (06:49)
[2023-05-06] MEDS: DOCUSATE SODIUM 100 MG CAPSULE (FP) PO SCH (06:49)
[2023-05-06] MEDS: ALBUTEROL SO4 0.083% IH SOL 2.5 MG/3 ML VIAL.NEB. NEB PRN (07:40)
[2023-05-06 08:57] VITALS: BP 105/56; PULSE 89; RESP 18; TEMP 97.8
[2023-05-06] MEDS: CHOLECALCIFEROL (VIT D3) 5000 UNITS (125 MCG) CAP PO SCH (09:44)
[2023-05-06] MEDS: ENOXAPARIN NA (PORCINE) 40 MG/0.4 ML DISP.SYRIN SQ SCH (09:44)
[2023-05-06] MEDS: POLYETHYLENE GLYCOL (HEALTHYLAX) 3350 17 GM PACKET PO SCH (09:44)
[2023-05-06] MEDS: FLUTICASONE/UMECLIDIN/VILANTER(100-62.5-25 TRELEGY ELLIPTA) INAHLER IH SCH (09:48)
== END 2023-05-06 11:28 | DRG 480 ==
LOC: JER 14:41 → JERBED 17:10 → J4S 04-24 03:28 → J6S 05-01 19:19
PROVIDERS: ADMIT Internal Medicine; ATTEND Internal Medicine
PROC: 0QS906Z Reposition Left Femoral Shaft with Intramedullary Internal Fixation Device, Open Approach (ICD-10-PCS; principal; 2023-04-24 15:30)
PROC: 0BBJ3ZX Excision of Left Lower Lung Lobe, Percutaneous Approach, Diagnostic (ICD-10-PCS; 2023-05-02)
DX: S72.392A Other fracture of shaft of left femur, initial encounter for closed fracture (principal); J18.9 Pneumonia, unspecified organism; N39.0 Urinary tract infection, site not specified; J98.11 Atelectasis; J95.89 Other postprocedural complications and disorders of respiratory system, not elsewhere classified; C34.92 Malignant neoplasm of unspecified part of left bronchus or lung; I10 Essential (primary) hypertension; S82.852A Displaced trimalleolar fracture of left lower leg, initial encounter for closed fracture; J44.9 Chronic obstructive pulmonary disease, unspecified; E78.5 Hyperlipidemia, unspecified; R91.8 Other nonspecific abnormal finding of lung field; E03.9 Hypothyroidism, unspecified; D72.829 Elevated white blood cell count, unspecified; G35 Multiple sclerosis; K21.9 Gastro-esophageal reflux disease without esophagitis; D50.9 Iron deficiency anemia, unspecified; R94.5 Abnormal results of liver function studies; B96.20 Unspecified Escherichia coli [E. coli] as the cause of diseases classified elsewhere; W17.89XA Other fall from one level to another, initial encounter; Y92.092 Bedroom in other non-institutional residence as the place of occurrence of the external cause; Y99.9 Unspecified external cause status; Z99.81 Dependence on supplemental oxygen
CPT/HCPCS: 32408; 36415; 71045-TC-FY; 71046-TC-FY; 71250-TC; 73502-TC-LT-FY; 73552-TC-LT-FY; 73700-TC-RT; 76000-TC-FY; 77012-TC; 80048; 80053; 81003; 82272; 82306; 82728; 82962; 83540; 83550; 84466; 85025; 85027; 85045; 85610; 85730; 86850; 86900; 86901; 87040; 87086; 87186; 87635; 87899; 88305-TC; 88341-TC; 93005; 93010; 94010; 94640; 94760; 97116-GP; 97162-GP; 99285-25; C1713; J1756

== ENCOUNTER 2023-06-12 19:31 | Emergency (ER) | payer OTHER, MEDICARE ==
[2023-06-12] MEDS ORDERED: SODIUM CHLORIDE IV ONE (19:59)
[2023-06-12 20:04] VITALS: BMI 28.5
[2023-06-12] MEDS ORDERED: SODIUM CHLORIDE 0.9% 500 ML INFUS.BAG IV ONE (20:23)
[2023-06-12 20:43] VITALS: RESP 20
[2023-06-12] MEDS ORDERED: methylPREDNISolone NA SUCC 125 MG/2 ML VIAL IVPUSH ONE (20:53)
[2023-06-12] MEDS ORDERED: ALBUTEROL SO4 2.5/IPRATROPIUM 0.5 INH SOL 3 ML VIAL.NEB. NEB ONE (20:59)
[2023-06-12] MEDS ORDERED: methylPREDNISolone NA SUCC 125 MG/2 ML VIAL ONE (21:00)
[2023-06-12 21:08] LABS: BASO % 0.4 % (0-2.0); EOS % 0.2 % (0-4.5); HEMATOCRIT 31.9 % (32.4-45.2); HEMOGLOBIN 10.3 GM/dL (10.7-15.3); LYMPH % 2.2 % (8-40); MCH 26.4 pg (25.7-33.7); MCHC 32.2 g/dl (32.0-36.0); MEAN CELL VOLUME 82.1 fl (80-96); MEAN PLT VOLUME 7.5 fl (7.5-11.1); MONO % 6.4 % (3.8-10.2); NEUT % 90.8 % (42.8-82.8); PLATELET COUNT 513 10^3/uL (134-434); RBC 3.89 M/mm3 (3.60-5.2); WHITE BLOOD COUNT 28.2 K/mm3 (4.0-10.0)
[2023-06-12] MEDS: ALBUTEROL SO4 2.5/IPRATROPIUM 0.5 INH SOL 3 ML VIAL.NEB. NEB SCH (21:08)
[2023-06-12 21:09] LABS: VENOUS BASE EXCESS 2.3 mmol/L (-2-2); VENOUS O2 SATURATION 92.4 % (70-80); VENOUS PCO2 42.9 mmHg (38-52); VENOUS PH 7.419 (7.310-7.410)
[2023-06-12 21:16] LABS: INR 1.26 (0.83-1.09); PROTHROMBIN TIME (PATIENT) 14.6 SEC (9.7-13.0)
[2023-06-12 21:19] LABS: ACTIVATED PTT 25.5 SECONDS (25.2-36.5)
[2023-06-12 21:30] LABS: POTASSIUM 3.5 mmol/L (3.5-5.1)
[2023-06-12] MEDS ORDERED: VANCOMYCIN 1,000 MG in DEXTROSE 5%-WATER - 250 ML IVPB ONE (21:30)
[2023-06-12] MEDS ORDERED: PIPERACILLIN/TAZOB 4.5 GM 4.5 GM in DEXTROSE 5%-WATER 100 ML IVPB ONE (21:30)
[2023-06-12 21:32] LABS: ALBUMIN 2.4 g/dl (3.4-5.0); BLOOD UREA NITROGEN 18.8 mg/dL (7-18)
[2023-06-12 21:35] LABS: ANISOCYTOSIS 2+; CREATININE 0.5 mg/dL (0.55-1.3); MACROCYTOSIS 0; OVALOCYTE 1+
[2023-06-12] MEDS ORDERED: PIPERACILLIN/TAZOB 4.5 GM 4.5 GM/100 ML BAG IVPB ONE (21:36)
[2023-06-12] MEDS ORDERED: VANCOMYCIN 1 GRAM (PRE-DOCKED) 1,000 MG/250 ML BAG IVPB ONE (21:36)
[2023-06-12 21:37] LABS: BILIRUBIN,TOTAL 0.6 mg/dL (0.2-1); TOT PROT 6.4 g/dl (6.4-8.2)
[2023-06-12] MEDS ORDERED: HEPARIN NA (PORCINE) 5,000 UNITS/ML 1ML VIAL IVPUSH ONE (22:38)
[2023-06-12] MEDS ORDERED: HEPARIN NA (PORCINE) 5,000 UNITS/ML 1ML VIAL ONE (22:40)
[2023-06-12] MEDS ORDERED: HEPARIN INFUSION - 25,000 UNITS/500 ML INFUS.BAG IVPB SCH (22:45)
[2023-06-12 23:31] LABS: N-TERMINAL BNP 2799.2 pg/ml (5-450)
[2023-06-13 00:10] VITALS: BP 106/69; PULSE 109; TEMP 98.9
== END 2023-06-13 01:55 | disposition admitted as inpatient to this hospital (09) ==
LOC: JER 19:31
PROC: 3E03329 Introduction of Other Anti-infective into Peripheral Vein, Percutaneous Approach (ICD-10-PCS; principal; 2023-06-12)
PROC: 3E03329 Introduction of Other Anti-infective into Peripheral Vein, Percutaneous Approach (ICD-10-PCS; 2023-06-12)
PROC: 3E033GC Introduction of Other Therapeutic Substance into Peripheral Vein, Percutaneous Approach (ICD-10-PCS; 2023-06-12)
PROC: 3E033GC Introduction of Other Therapeutic Substance into Peripheral Vein, Percutaneous Approach (ICD-10-PCS; 2023-06-12)
PROC: 3E033GC Introduction of Other Therapeutic Substance into Peripheral Vein, Percutaneous Approach (ICD-10-PCS; 2023-06-12)
PROC: 3E0F7GC Introduction of Other Therapeutic Substance into Respiratory Tract, Via Natural or Artificial Opening (ICD-10-PCS; 2023-06-12)
DX: R09.02 Hypoxemia (principal); R00.0 Tachycardia, unspecified; I26.99 Other pulmonary embolism without acute cor pulmonale; Z20.822 Contact with and (suspected) exposure to COVID-19
CPT/HCPCS: 0241U-QW; 36415; 71275-TC; 80053; 82550; 82553; 82803; 82962; 83605; 83880; 84484; 85025; 85610; 85730; 86850; 86870; 86880; 86900; 86901; 86902; 87040; 93005; 93010; 99291; J1644; Q9967